=== PATIENT | male | born 1955 | race Caucasian/White ===

== ENCOUNTER 2017-06-16 05:32 | Day surgery (SDC) | payer OTHER, BC ==
[~2017-06-16] VITALS: Ht 175.3 cm; Wt 89.8 kg
[2017-06-16] VITALS (10 sets, daily range): BP systolic 97–124; BP diastolic 42–68; PULSE 62–70; RESP 12–18; Ht 175.3 cm; Wt 89.8 kg
[2017-06-16] MEDS ORDERED: morphine (1 MG/ML) 10ML SYRINGE IV PRN ×3 (06:00)
[2017-06-16] MEDS ORDERED: EPHEDrine SULFATE 50 MG/5 ML SYG IV PRN (06:00)
[2017-06-16] MEDS ORDERED: OXYCODONE/ACETAMINOPHEN (5/325) TAB PO PRN ×3 (06:00→11:00)
[2017-06-16] MEDS ORDERED: hydrALAzine 20 MG INJ IV PRN (06:00)
[2017-06-16] MEDS ORDERED: FENTAnyl 50 MCG/ML VIAL IV PRN ×2 (06:00)
[2017-06-16] MEDS ORDERED: LABETALOL HCL 20MG INJ IV PRN (06:00)
[2017-06-16] MEDS ORDERED: MIDAZOLAM 1 MG/ML 2 ML INJ IV PRN (06:00)
[2017-06-16] MEDS ORDERED: HYDROmorphONE (0.2 MG/ML) 10ML SYG IV PRN ×3 (06:00)
[2017-06-16] MEDS ORDERED: MEPERIDINE 25 MG INJ IV PRN (06:00)
[2017-06-16] MEDS ORDERED: ATROPINE 1 MG/10 ML SYRINGE IV PRN (06:00)
[2017-06-16] MEDS ORDERED: ONDANSETRON 4 MG INJ IV PRN (06:00)
[2017-06-16] MEDS ORDERED: DIPHENHYDRAMINE 50 MG INJ IV PRN (06:00)
[2017-06-16] MEDS ORDERED: MIDAZOLAM 1 MG/ML 2 ML INJ ONE (06:05)
[2017-06-16] MEDS ORDERED: PROPOFOL 20 ML ONE (06:05)
[2017-06-16] MEDS ORDERED: LIDOCAINE 2% (SDV) 5 ML INJ ONE (06:05)
[2017-06-16] MEDS ORDERED: NEOSTIGMINE 3 MG/3 ML SYRINGE ONE (06:05)
[2017-06-16] MEDS ORDERED: FENTAnyl 50 MCG/ML VIAL ONE (06:05)
[2017-06-16] MEDS ORDERED: ROCURONIUM 50 MG INJ ONE ×2 (06:05→07:00)
[2017-06-16] MEDS ORDERED: GLYCOPYRROLATE 0.4 MG INJ ONE (06:05)
[2017-06-16] MEDS ORDERED: DEXAMETHASONE 4 MG/ML 1 ML INJ ONE (06:06)
[2017-06-16] MEDS ORDERED: ONDANSETRON 4 MG INJ ONE (06:07)
[2017-06-16] MEDS ORDERED: SUGAMMADEX SODIUM 200 MG/2 ML VIAL IV ONE (06:07)
[2017-06-16] MEDS ORDERED: ROPIVACAINE 0.5 % 30 ML VIAL ONE ×2 (06:08→09:13)
[2017-06-16] MEDS ORDERED: LIDOCAINE 2%/EPI 30 ML INJ ONE (06:08)
--- NOTE | 2017-06-16 07:10 | HPN ---
Date/Time of Note Date/Time of Note DATE: 06/16/17 TIME: 06:50 Interval H&P Admission Note Pt. seen H&P reviewed: No system changes HENRY JACOBS MD Jun 16, 2017 07:10
[2017-06-16] MEDS ORDERED: VANCOMYCIN 1 GM (PMX) 250 ML IVPB SCH (07:30)
[2017-06-16] MEDS ORDERED: VANCOMYCIN 500MG/NS (PMX) 100 ML IVPB SCH (07:30)
[2017-06-16] MEDS ORDERED: POLYMYXIN/BACITRACIN 1L IRRIG ONE (09:13)
[2017-06-16] MEDS ORDERED: POVIDONE IODINE 10% 28.4 GM OINT ONE (09:13)
[2017-06-16] MEDS ORDERED: BACITRACIN/POLYMYXIN 28.35 GM OINT TOP ONE (09:50)
--- NOTE | 2017-06-16 10:37 | QN ---
Documentation Job number: [id number] Comment [id number] HENRY JACOBS MD Jun 16, 2017 10:37
--- NOTE | 2017-06-16 10:47 | SIPON ---
Date/Time of Note Date/Time of Note DATE: 06/16/17 TIME: 10:46 Operative Report Preoperative Diagnosis Right ankle peroneal tendon dislocation Right ankle peroneal brevis partial tear Right ankle peroneal tenosynovitis Postoperative Diagnosis Right ankle peroneal tendon dislocation Right ankle peroneal brevis partial tear Right ankle peroneal tenosynovitis Operation/Procedure Performed Right ankle peroneal tendon dislocation reduction with fibular groove deepening Right ankle peroneal brevis partial tear debridement Right ankle peroneal tenosynovectomy Surgeon Eder Jacobs MD assistant professor in family studies Topher Jacobs MD Second assist: REHANA PINZON MD Anesthesia: general Estimated blood loss: minimal Transfusion Required none Specimen none Grafts/Implants none Complications none EDER JACOBS MD Jun 16, 2017 10:46
[2017-06-16] MEDS ORDERED: morphine 2 MG INJ IV PRN (11:00)
--- NOTE | 2017-06-16 17:55 | OPR ---
DATE OF OPERATION: 06/16/2017 PRIMARY SURGEON: Henry Jacobs MD SET DESIGNER SURGEON: 1. Filippo Jacobs MD 2. Rehana Pinzon MD ANESTHESIOLOGIST: Dr. Wong PREOPERATIVE DIAGNOSES: 1. Right peroneal brevis tear. 2. Right peroneal tendon dislocation with superficial peroneal retinaculum injury. POSTOPERATIVE DIAGNOSES: 1. Right peroneal brevis partial tear. 2. Right peroneal longus and brevis tenosynovitis. 3. Right peroneal tendon dislocation with superficial peroneal retinaculum injury. PROCEDURE: 1. Right ankle peroneal brevis debridement. 2. Right ankle peroneus longus and brevis tenosynovectomy. 3. Right ankle fibular peroneal groove deepening. 4. Right ankle superficial peroneal retinaculum repair. TOURNIQUET TIME: 103 minutes at 250 mmHg. ANESTHESIA: General with a popliteal regional block. PATHOLOGY: None. COMPLICATIONS: None. ESTIMATED BLOOD LOSS: Minimal. TRANSFUSION: None. SPECIMENS: None. IMPLANTS: None. TUBES AND DRAINS: None. Patient post procedure is stable. DISPOSITION: To the PACU. INDICATIONS: The patient is a 62-year-old gentleman who sustained a peroneal tendon injury and dislocating event approximately 2 weeks ago. The patient is a very active person and ice skates very frequently and we discussed the risks and benefits of surgery as well as nonoperative treatment options including treatment with a cast or a boot. The patient elected to proceed with surgery. The patient was explained the risks and benefits of surgery in the patient's [place] language including but not limited to infection, bleeding, loss of limb, loss of life, need for future surgery, risk of DVT, risk of pulmonary embolism. The patient understood these risks by signing the surgical consent form. PROCEDURE DESCRIPTION: The patient was met in the preoperative holding area and marked on the correct operative extremity which was confirmed with both patient and consent. The patient was then given preoperative regional block anesthesia and preoperative general anesthesia and preoperative antibiotics of vancomycin 1 gram. The patient was brought to operative theater, placed supine on the operative table and then placed into the lateral decubitus position and all bony prominences were well padded. The patient then had a nonsterile tourniquet placed on the operative extremity and then prepped and draped in normal sterile fashion. A timeout was taken and all parties in the room agreed it was correct patient, extremity and procedure. Tourniquet was brought up to 250 mmHg, and incision was made just posterior to the fibula proximally, extending over the lateral aspect of the fibula and then extending along the sinus tarsi approach. Incision was brought down to the peroneal tendons with care to avoid an injury to the neurovascular structures. The sural nerve was identified and retracted out of the surgical field and protected throughout the case. The peroneal longus and brevis were shown to be easily dislocatable and dislocating over the tip of the fibula which it appeared to have a slightly dysplastic fibular groove. The peroneal retinaculum also appeared to be injured, contributing to this dislocation as well as there be a low-lying muscle belly of the peroneal tendons. The peroneal tendon sheath was initially opened proximally and then the retinaculum was opened superiorly with a cuff left there and then the peroneal sheath was opened distally. There was a peroneal brevis split tear that was identified and 40% of the peroneal tendon was then found to be torn and the torn portion was removed and then tubularized with a 3-0 PDS of the peroneal brevis. The peroneus longus was found to be intact to the peroneal tubercle and there was extensive tenosynovitis seen over both peroneal brevis and longus. The peroneal tenosynovium was debrided extensively and removed. The fibular groove deepening was then performed initially with a sagittal saw proximally and extending distally and then deepened with an osteotome, and then using both a curet and a 3.0 zeb, the cancellous bone was then debrided from the inside of the fibula. The fibula lateral cortex was then compressed in to create a new well-contoured fibular groove. Then, using a size 0 FiberWire in a [id number]-iyag-nfci fashion, the superficial peroneal retinaculum was then repaired on the most posterior aspect initially and then using a 0.045 K-wire was placed in the fibular groove and then the sutures were then passed in a tykuu-mcoc-fayh fashion to tuck the superficial peroneal retinaculum into the groove with the peroneal tendons reduced into the groove properly and shown to be held in place in the new groove in a well reduced position. The retinaculum was then sewed in a hwtqv-jjwf-gtzc like fashion extending distally and then going proximally. Wound was then further irrigated and then the peroneal retinaculum was then further closed with a 3-0 PDS in a [id number]-epqa-[id number] fashion , both distally and proximally. The tendons were found to glide well in the groove with no dislocation anymore. The wound was thoroughly irrigated, tourniquet was brought down at 103 minutes. Hemostasis was then achieved, and then the remainder of the wound was then irrigated again, closed in layers with 3-0 Vicryl followed by a 4-0 nylon in a vertical mattress fashion. All wounds were dressed with Xeroform, triple- antibiotic ointment, 4 x 4's, 5 ABDs and 5 Webrils in a well-padded short leg splint that was then over wrapped with 1 roll of 6-inch cast roll and then bias. At the end of the case, the cap refill was brisk and all sponge and needle counts were correct. The patient was brought to PACU in stable condition. SET DESIGNER SURGEON NOTE: The use of an orthopedic surgical instrument maker was necessary for this case in order to assist in reduction of the peroneal tendons as well as assisting in placing the drill holes and fibular groove deepening. Without the use of a surgical instrument maker that was an orthopedic surgeon and well qualified for this case, the case would have been considerably longer and more complex. Dictated By: HENRY JACOBS MD EIF/NTS Conf#: [id number] DID#: [id number] CC: REHANA PINZON MD; FILIPPO JACOBS MD;*EndCC* MTDD
== END 2017-06-16 12:30 | disposition home or self-care (01) ==
LOC: SDS 05:32
PROVIDERS: ATTEND Orthopaedic Surgery
DX: S86.311D Strain of muscle(s) and tendon(s) of peroneal muscle group at lower leg level, right leg, subsequent encounter (principal); X58.XXXD Exposure to other specified factors, subsequent encounter; M65.871 Other synovitis and tenosynovitis, right ankle and foot
CPT/HCPCS: 27676; J1100; J2250; J2405; J2795; J3010; J3370; J2710